=== PATIENT | male | born 1945 | race Caucasian/White ===

== ENCOUNTER → 2018-07-29 08:13 | Outpatient (CLI) | payer MEDICARE, SELFPAY ==
[2018-07-29 08:47] LABS: Add Manual Diff / Slide Review NO; Eosinophils Percent Auto 2.7 % (2-4); Hematocrit 43.3 % (41-53); Hemoglobin 15.2 g/dL (13.5-17.5); Lymphocytes Percent Auto 24.9 % (25-40); Mean Corpuscular Hemoglobin 30.4 PG (26-34); Monocytes Percent Auto 10.6 % (3-14); Neutrophils Absolute Auto 4200 /uL (3000-5900); Neutrophils Percent Auto 60.8 % (50-75); Platelet Count 167 X10^3/uL (150-400); Red Blood Cell Count 4.98 X10^6/uL (4.5-5.9); Red Cell Distribution Width 13.2 % (11.6-14.8)
[2018-07-29 09:52] LABS: Alanine Aminotransferase 28 IU/L (21-72); Albumin 4.1 g/dL (3.5-5.0); Albumin Globulin Ratio 1.6 (1.0-2.8); Alkaline Phosphatase 68 U/L (38-126); Aspartate Aminotransferase 23 IU/L (17-59); BUN Creatinine Ratio 22.5 (6-22); Bilirubin Total 0.5 mg/dL (0.2-1.3); Blood Urea Nitrogen 18 mg/dL (9-20); Calcium 8.8 mg/dL (8.4-10.2); Carbon Dioxide 28 mmol/L (22-32); Chloride 103 mmol/L (98-107); Cholesterol 129 mg/dL (140-199); Estimated Glomerular Filt Rate > 60.0 mL/min (>60); Globulin 2.5 g/dL (1.7-4.1); Glucose 94 mg/dL (80-110); HDL Cholesterol 43 mg/dL (40-60); HEMOLYSIS < 15 (0-50); LDL Cholesterol Calculated 72 mg/dL (<100); Potassium 4.4 mmol/L (3.4-5.1); Sodium 142 mmol/L (137-145); Total Protein 6.6 g/dL (6.3-8.2); Triglycerides 71 mg/dL (35-150)
== END ==
PROVIDERS: Visit Provider Internal Medicine Cardiovascular Disease
DX: I25.10 Atherosclerotic heart disease of native coronary artery without angina pectoris (principal)
CPT/HCPCS: 36415; 80053; 80061; 85025

== ENCOUNTER → 2019-05-13 08:36 | Outpatient (CLI) | payer MEDICARE, SELFPAY ==
--- NOTE | 2019-05-13 08:39 | DI.US.S_ITS ---
PROCEDURE: US ABD AORTA ANEURYSM SCREEN INDICATIONS: ABDOMINAL AORTIC ANEURYSM SCREENING TECHNIQUE: Real time scanning was performed of the aorta and iliac arteries, with image documentation. COMPARISON: None. FINDINGS: Aorta: Proximal aortic diameter measures 3.0 cm. Mid-aorta measures 2.4 cm. Distal aortic diameter is 2.0 cm. Iliac arteries: Right common iliac artery measures 1.7 cm. Left common iliac artery measures 1.5 cm. IMPRESSION: 1. No aneurysmal dilation. Mild scattered plaque. Dictated by: Sirisha Bella M.D. on 05/13/2019 at 13:41 Approved by: Sirisha Bella M.D. on 05/13/2019 at 13:42
== END ==
PROVIDERS: PCP Student in an Organized Health Care Education/Training Program; Visit Provider Student in an Organized Health Care Education/Training Program
DX: Z13.6 Encounter for screening for cardiovascular disorders (principal); Z87.891 Personal history of nicotine dependence
CPT/HCPCS: 76706

== ENCOUNTER 2019-09-05 11:11 | Observation (INO) | payer MEDICARE, SELFPAY ==
[2019-09-05] VITALS (8 sets, daily range): BP systolic 121–150; BP diastolic 74–85; PULSE 58–77; RESP 13–18; TEMP 36.3–36.7; O2SAT 94–100
--- NOTE | 2019-09-05 11:18 | DI.RAD.S_ITS ---
PROCEDURE: XR FINGER LT MIN 2V INDICATIONS: injury TECHNIQUE: 3 views of the 3rd digit acquired. COMPARISON: The FINDINGS: Bones: There is a small chip fracture along the distal ulnar-sided aspect of the 3rd distal phalanx. No dislocations. There is [id number] degeneration of the 3rd distal interphalangeal joint. Soft tissues: There is a soft tissue laceration in the 3rd digit distally with partial soft tissue amputation of the ulnar aspect distally. No radiopaque foreign bodies. IMPRESSION: 1. Soft tissue laceration of the 3rd digit distally with a small chip fracture of the 3rd distal phalanx. Dictated by: Andrés Jaffe M.D. on 09/05/2019 at 10:33 Approved by: Andrés Jaffe M.D. on 09/05/2019 at 10:35
[2019-09-05] MEDS: CEFAZOLIN 2 GM/100 ML FROZ.PIGGY IV (12:37)
--- NOTE | 2019-09-05 13:12 | DI.RAD.S_ITS ---
PROCEDURE: XR CHEST 1V INDICATIONS: pre op TECHNIQUE: One view of the chest was acquired. COMPARISON: [facility], , CHEST 1 VIEW, 08/09/2010, 22:45. FINDINGS: Surgical changes and devices: None. Lungs and pleura: Lungs are clear. No pleural effusions or pneumothorax. Mediastinum: Mediastinal contours appear normal. Heart size is normal. Bones and chest wall: No suspicious bony lesions. Overlying soft tissues appear unremarkable. IMPRESSION: 1. No acute cardiopulmonary disease. Dictated by: Andrés Jaffe M.D. on 09/05/2019 at 12:42 Approved by: Andrés Jaffe M.D. on 09/05/2019 at 12:48
--- NOTE | 2019-09-05 13:21 | ED.UPPEXIN ---
HPI - Extremity Injury (Upper) <JESSICA RamosBC - Last Filed: 09/05/19 15:12> General Chief Complaint: Extremity Injury, Upper Stated Complaint: Left hand middle finger injury Time Seen by Provider: 09/05/19 11:55 Source: patient Mode of arrival: Ambulatory Limitations: no limitations History of Present Illness HPI narrative: The patient is a 74-year-old male former smoker with history of cardiovascular disease who presents with a chief complaint of an injury to the left middle finger. He states he got caught in a running treadmill belt this morning. Does not know when his last tetanus was. States he pulled off the tip of the left middle finger. States he is right-hand dominant. Denies any previous injuries to that area. States last food was crackers and cheese and coffee at 8:30 a.m. this morning. States he is right-hand dominant. Related Data Home Medications Medication Instructions Recorded Confirmed aspirin 81 mg PO QDAY #0 09/07/12 12/24/18 Previous Rx's Medication Instructions Recorded sildenafil (pulm.hypertension) 20 20 mg PO DAILY PRN #30 tab 12/24/18 mg tablet atorvastatin 80 mg tablet 80 mg PO DAILY #90 tab 08/03/19 lisinopril 5 mg tablet 5 mg PO DAILY #90 tab 08/03/19 metoprolol tartrate 50 mg tablet 50 mg PO BID #180 tab 08/03/19 clindamycin HCl 300 mg PO TID #15 cap 09/05/19 oxycodone 5 mg PO Q6H PRN #30 tab 09/05/19 Allergies Allergy/AdvReac Type Severity Reaction Status Date / Time amoxicillin [From AUGMENTIN] Allergy Unknown Verified 09/05/19 11:17 clavulanic acid Allergy Unknown Verified 09/05/19 11:17 [From AUGMENTIN] Review of Systems <KALA Ramos - Last Filed: 09/05/19 15:12> Review of Systems Narrative: GENERAL: Denies chills, fatigue, malaise, fever, sweats. HEENT: Denies sinus pain, ear pain, sore throat, difficulty swallowing, dizziness. RESPIRATORY: Denies dyspnea, cough, wheezing, hemoptysis, sputum. CARDIOVASCULAR: Denies chest pain, palpitations, orthopnea, edema, GASTROINTESTINAL: Denies nausea, vomiting, abdominal pain, diarrhea, constipation, melena. : Denies dysuria, frequency, incontinence, hematuria, urinary retention. MUSCULOSKELETAL: See HPI SKIN: See HPI NEUROLOGIC: Denies weakness, headache, numbness, change in speech, confusion, seizures, incoordination. PSYCHIATRIC: No concerning psychosocial issues. 12 point review of systems is negative except for those stated above Patient History <KAAL Ramos - Last Filed: 09/05/19 15:12> Medical History Jaimes's esophagus (Chronic ~2009) Cardiac arrest (Resolved ~07/2010) Carotid artery disease (Chronic) Colon polyps (Chronic ~2007) Hyperlipidemia (Chronic) Hypertension (Chronic) Kidney stones (Chronic) Measles (Resolved) Mumps (Resolved) Murmur (Chronic) Sigmoid diverticulum (Chronic) Surgical History Anesthesia (Resolved) History of angioplasty (~06/2010) History of colonoscopy (Resolved ~2011) Family History Brother Age: 69 Hypertension High cholesterol Father Age: 98 Heart disease Mother Heart disease Sister Age: 70 High cholesterol Social History Smoking Status: Former smoker Smoking Status: Former smoker Exam <KALA Ramos - Last Filed: 09/05/19 15:12> Narrative Exam Narrative: GENERAL: This is a well-nourished, well-developed patient, in no acute distress HEAD: Atraumatic. Normocephalic. No temporal or scalp tenderness. EYES: Pupils equal round and reactive. Extraocular motions intact. No scleral icterus. No injection or drainage. ENT: Nose without bleeding, purulent drainage or septal hematoma. Throat without erythema, tonsillar hypertrophy or exudate. Uvula midline. Airway patent. NECK: Trachea midline. No JVD or lymphadenopathy. Supple, nontender, no meningeal signs. CARDIOVASCULAR: Regular rate and rhythm RESPIRATORY: No cough. No increased respiratory effort. No accessory muscle use. EXTREMITIES: Range of motion intact noted left middle finger. Able to flex and extend against resistance. See skin exam. BACK: Nontender without deformity or crepitance. No flank tenderness. NEURO: AOx3. SKIN: Injury noted to left middle finger: Soft tissue amputation noted at top of nail, running around tip of left middle finger to senior living down palmar distal phalanx. Through dermis, soft tissue loss, bone visible. Initial Vital Signs Initial Vital Signs: Vital Signs Pulse Rate 77 09/05/19 11:17 Respiratory Rate 16 09/05/19 11:17 Pulse Oximetry 98 09/05/19 11:17 <Jessica Hudson MD - Last Filed: 09/05/19 20:01> Initial Vital Signs Initial Vital Signs: Vital Signs Pulse Rate 77 09/05/19 11:17 Respiratory Rate 16 09/05/19 11:17 Pulse Oximetry 98 09/05/19 11:17 Course <KALA Ramos - Last Filed: 09/05/19 15:12> Orders Ordered: ED Orders 09/05/19 11:18 XR finger LT min 2V Stat 09/05/19 12:10 Complete Blood Count AUTO DIFF Stat Comprehensive Metabolic Panel Stat 09/05/19 13:12 XR chest 1V Stat EKG-12 Lead Stat Discontinued Medications Hydrocodone Bitart/Acetaminophen ([place] 5/325) 1 tab PO NOW PRN PRN Reason: Mild or moderate pain Bupivacaine HCl (Sensorcaine 0.25% (Pf)) 30 ml INJ NOW ONE Stop: 09/05/19 15:03 Last Admin: 09/05/19 15:03 Dose: 30 ml Documented by: LAUREANO Diphtheria/Tetanus/Acell Pertussis (Adacel) 0.5 ml IM .ONCE ONE Stop: 09/05/19 13:24 Last Admin: 09/05/19 13:28 Dose: 0.5 ml Documented by: RSTONJohnnie Fentanyl (Sublimaze) 0 mcg IV Q5MIN PRN PRN Reason: Pain, Mild (1-3) Fentanyl (Sublimaze) 0 mcg IV Q5M PRN PRN Reason: Pain, Severe (7-10) Fentanyl (Sublimaze) 0 mcg IV Q5M PRN PRN Reason: Pain, Moderate (4-6) Cefazolin Sodium/Dextrose (Ancef) 2 gm in 100 mls @ 200 mls/hr IV NOW ONE Stop: 09/05/19 12:46 Last Infusion: 12/08/19 13:13 Dose: 0 mls/hr Documented by: Admin: 09/05/19 12:37 Dose: 200 mls/hr Documented by: HOANG Lactated Ringer's (Lactated Ringers) 1,000 mls @ 42 mls/hr IV CONT JEFFREY Last Infusion: 09/05/19 15:57 Dose: 0 mls/hr Documented by: Admin: 09/05/19 14:30 Dose: 42 mls/hr Documented by: ANJANA Ondansetron HCl (Zofran) 4 mg IV NOW PRN PRN Reason: Nausea And Vomiting Vital Signs Vital signs: Vital Signs - 8 hr 09/05/19 13:37 Temperature 98.0 F Pulse Rate 60 Respiratory Rate 18 Blood Pressure [Right Arm] 150/85 H Pulse Oximetry 100 <Jessica Hudson MD - Last Filed: 09/05/19 20:01> Orders Ordered: ED Orders 09/05/19 11:18 XR finger LT min 2V Stat 09/05/19 12:10 Complete Blood Count AUTO DIFF Stat Comprehensive Metabolic Panel Stat 09/05/19 13:12 XR chest 1V Stat EKG-12 Lead Stat Discontinued Medications Hydrocodone Bitart/Acetaminophen ([place] 5/325) 1 tab PO NOW PRN PRN Reason: Mild or moderate pain Bupivacaine HCl (Sensorcaine 0.25% (Pf)) 30 ml INJ NOW ONE Stop: 09/05/19 15:03 Last Admin: 09/05/19 15:03 Dose: 30 ml Documented by: LAUREANO Diphtheria/Tetanus/Acell Pertussis (Adacel) 0.5 ml IM .ONCE ONE Stop: 09/05/19 13:24 Last Admin: 09/05/19 13:28 Dose: 0.5 ml Documented by: HOANG Fentanyl (Sublimaze) 0 mcg IV Q5MIN PRN PRN Reason: Pain, Mild (1-3) Fentanyl (Sublimaze) 0 mcg IV Q5M PRN PRN Reason: Pain, Severe (7-10) Fentanyl (Sublimaze) 0 mcg IV Q5M PRN PRN Reason: Pain, Moderate (4-6) Cefazolin Sodium/Dextrose (Ancef) 2 gm in 100 mls @ 200 mls/hr IV NOW ONE Stop: 09/05/19 12:46 Last Infusion: 09/05/19 13:13 Dose: 0 mls/hr Documented by: Admin: 09/05/19 12:37 Dose: 200 mls/hr Documented by: HOANG Lactated Ringer's (Lactated Ringers) 1,000 mls @ 42 mls/hr IV CONT JEFFREY Last Infusion: 09/05/19 15:57 Dose: 0 mls/hr Documented by: Admin: 09/05/19 14:30 Dose: 42 mls/hr Documented by: ANJANA Ondansetron HCl (Zofran) 4 mg IV NOW PRN PRN Reason: Nausea And Vomiting Vital Signs Vital signs: Vital Signs - 8 hr 09/05/19 13:37 Temperature 98.0 F Pulse Rate 60 Respiratory Rate 18 Blood Pressure [Right Arm] 150/85 H Pulse Oximetry 100 MDM - Extremity Injury (Upper) <MERLYN Ramos- - Last Filed: 09/05/19 15:12> Lab Data Result diagrams: 09/05/19 12:10 09/05/19 12:10 Labs: Lab Results 09/05/19 09/05/19 Range/Units 12:10 12:10 WBC 7.1 (4.5-11.0) X10^3/uL RBC 5.03 (4.5-5.9) X10^6/uL Hgb 15.4 (13.5-17.5) g/dL Hct 44.5 (41-53) % MCV 88.5 (80-100) fL MCH 30.6 (26-34) PG MCHC 34.6 (30-36) % RDW 13.3 (11.6-14.8) % Plt Count 152 (150-400) X10^3/uL Neut % (Auto) 60.1 (50-75) % Lymph % (Auto) 26.7 (25-40) % Harris % (Auto) 9.2 (3-14) % Eos % (Auto) 3.2 (2-4) % Baso % (Auto) 0.8 (0-2) % Neut # (Auto) 4300 (8384-5737) /uL Lymph # (Auto) 1900 (2418-1671) /uL Harris # (Auto) 700 (0-900) /uL Eos # (Auto) 200 (0-450) /uL Baso # (Auto) 100 (0-100) /uL Sodium 139 (137-145) mmol/L Potassium 4.4 (3.4-5.1) mmol/L Chloride 108 H (98-107) mmol/L Carbon Dioxide 21 L (22-32) mmol/L BUN 16 (9-20) mg/dL Creatinine 0.90 (0.66-1.25) mg/dL Estimated GFR > 60.0 (>60) mL/min BUN/Creatinine Ratio 17.8 (6-22) Glucose 84 (80-110) mg/dL Calcium 9.1 (8.4-10.2) mg/dL Total Bilirubin 0.5 (0.2-1.3) mg/dL AST 46 (17-59) IU/L ALT 55 H (<50) IU/L Alkaline Phosphatase 84 (38-126) U/L Total Protein 6.1 L (6.3-8.2) g/dL Albumin 3.8 (3.5-5.0) g/dL Globulin 2.3 (1.7-4.1) g/dL Albumin/Globulin Ratio 1.7 (1.0-2.8) Imaging Data Chest x-ray: Radiologist's impression: [address] [address] XRay Report Signed Patient: Mike Andre LMR#: [id number] : 6Acct:[id number] Age/Sex: 74 / MDate of Service: 09/05/19 Loc: ED Accession Number: [id number] Procedure: XR chest 1V Ordering Provider: Debi Ramirez PROCEDURE: XR CHEST 1V INDICATIONS: pre op TECHNIQUE: One view of the chest was acquired. COMPARISON: [facility], , CHEST 1 VIEW, 08/09/2010, 22:45. FINDINGS: Surgical changes and devices: None. Lungs and pleura: Lungs are clear. No pleural effusions or pneumothorax. Mediastinum: Mediastinal contours appear normal. Heart size is normal. Bones and chest wall: No suspicious bony lesions. Overlying soft tissues appear unremarkable. IMPRESSION: 1. No acute cardiopulmonary disease. Dictated by: Andrés Jaffe M.D. on 09/05/2019 at 12:42 Approved by: Andrés Jaffe M.D. on 09/05/2019 at 12:48 Finger x-ray: Radiologist's impression: [address] [address] XRay Report Signed Patient: Mike Andre LMR#: [id number] : 6Acct:[id number] Age/Sex: 74 / MDate of Service: 09/05/19 Loc: ED Accession Number: [id number] Procedure: XR finger LT min 2V Ordering Provider: Jessica Hudson MD PROCEDURE: XR FINGER LT MIN 2V INDICATIONS: injury TECHNIQUE: 3 views of the 3rd digit acquired. COMPARISON: The FINDINGS: Bones: There is a small chip fracture along the distal ulnar-sided aspect of the 3rd distal phalanx. No dislocations. There is [id number] degeneration of the 3rd distal interphalangeal joint. Soft tissues: There is a soft tissue laceration in the 3rd digit distally with partial soft tissue amputation of the ulnar aspect distally. No radiopaque foreign bodies. IMPRESSION: 1. Soft tissue laceration of the 3rd digit distally with a small chip fracture of the 3rd distal phalanx. Dictated by: Andrés Jaffe M.D. on 09/05/2019 at 10:33 Approved by: Andrés Jaffe M.D. on 09/05/2019 at 10:35 ECG Data Attestation: I personally reviewed and interpreted this ECG as follows: Interpretation: Sinus bradycardia. Ventricular rate 57. P.r. interval 189. QRS 86. Viewed by Dr. Tristan VARGAS Narrative Medical decision making narrative: The patient is a 74-year-old male presents with a chief complaint of soft tissue injury to his left middle finger. Given the significance of his injury, open fracture use given 2 g Ancef IV. I spoke with Dr. Fernandez from [facility], who viewed his injury and stated that he would rather take the patient to the operating room for cleansing and closure. He was cleansed with Hibiclens the emergency department. His tetanus is updated. The patient repeatedly declined pain medicine or a digit block in the ER. Per ortho recommendations, chest x-ray, EKG and basic lab work were obtained. Discussed with patient. He has no questions or concerns. Was transferred to operating room at 2:16 p.m. <Jessica Hudson MD - Last Filed: 09/05/19 20:01> Lab Data Labs: Lab Results 09/05/19 09/05/19 Range/Units 12:10 12:10 WBC 7.1 (4.5-11.0) X10^3/uL RBC 5.03 (4.5-5.9) X10^6/uL Hgb 15.4 (13.5-17.5) g/dL Hct 44.5 (41-53) % MCV 88.5 (80-100) fL MCH 30.6 (26-34) PG MCHC 34.6 (30-36) % RDW 13.3 (11.6-14.8) % Plt Count 152 (150-400) X10^3/uL Neut % (Auto) 60.1 (50-75) % Lymph % (Auto) 26.7 (25-40) % Harris % (Auto) 9.2 (3-14) % Eos % (Auto) 3.2 (2-4) % Baso % (Auto) 0.8 (0-2) % Neut # (Auto) 4300 (4322-9354) /uL Lymph # (Auto) 1900 (8805-6460) /uL Harris # (Auto) 700 (0-900) /uL Eos # (Auto) 200 (0-450) /uL Baso # (Auto) 100 (0-100) /uL Sodium 139 (137-145) mmol/L Potassium 4.4 (3.4-5.1) mmol/L Chloride 108 H (98-107) mmol/L Carbon Dioxide 21 L (22-32) mmol/L BUN 16 (9-20) mg/dL Creatinine 0.90 (0.66-1.25) mg/dL Estimated GFR > 60.0 (>60) mL/min BUN/Creatinine Ratio 17.8 (6-22) Glucose 84 (80-110) mg/dL Calcium 9.1 (8.4-10.2) mg/dL Total Bilirubin 0.5 (0.2-1.3) mg/dL AST 46 (17-59) IU/L ALT 55 H (<50) IU/L Alkaline Phosphatase 84 (38-126) U/L Total Protein 6.1 L (6.3-8.2) g/dL Albumin 3.8 (3.5-5.0) g/dL Globulin 2.3 (1.7-4.1) g/dL Albumin/Globulin Ratio 1.7 (1.0-2.8) Discharge Plan Departure Patient Disposition: Admitted as Observation Clinical Impression: Fingertip amputation Discharge Date/Time: 09/05/19 14:15 Instructions: DI for Incision and Drainage Referrals: Jesus Yarbrough MD [Primary Care Provider] - Admit Date/Time: 09/05/19 14:11 Admit Provider: Tay Fernandez
[2019-09-05 13:24] LABS: Add Manual Diff / Slide Review NO; Basophils Absolute Auto 100 /uL (0-100); Basophils Percent Auto 0.8 % (0-2); Eosinophils Absolute Auto 200 /uL (0-450); Eosinophils Percent Auto 3.2 % (2-4); Hematocrit 44.5 % (41-53); Hemoglobin 15.4 g/dL (13.5-17.5); Lymphocytes Absolute Auto 1900 /uL (1100-4500); Lymphocytes Percent Auto 26.7 % (25-40); Mean Corpuscular HGB Conc 34.6 % (30-36); Mean Corpuscular Hemoglobin 30.6 PG (26-34); Mean Corpuscular Volume 88.5 fL (80-100); Monocytes Absolute Auto 700 /uL (0-900); Monocytes Percent Auto 9.2 % (3-14); Neutrophils Absolute Auto 4300 /uL (1500-7000); Neutrophils Percent Auto 60.1 % (50-75); Platelet Count 152 X10^3/uL (150-400); Red Blood Cell Count 5.03 X10^6/uL (4.5-5.9); Red Cell Distribution Width 13.3 % (11.6-14.8); White Blood Cell Count 7.1 X10^3/uL (4.5-11.0)
[2019-09-05] MEDS: TET,DIPH,PERTUSS(ACELL),VAC/PF 0.5 ML SYRINGE IM (13:28)
[2019-09-05 13:37] LABS: Alanine Aminotransferase 55 IU/L (<50); Albumin 3.8 g/dL (3.5-5.0); Albumin Globulin Ratio 1.7 (1.0-2.8); Alkaline Phosphatase 84 U/L (38-126); Aspartate Aminotransferase 46 IU/L (17-59); BUN Creatinine Ratio 17.8 (6-22); Bilirubin Total 0.5 mg/dL (0.2-1.3); Blood Urea Nitrogen 16 mg/dL (9-20); Calcium 9.1 mg/dL (8.4-10.2); Carbon Dioxide 21 mmol/L (22-32); Chloride 108 mmol/L (98-107); Estimated Glomerular Filt Rate > 60.0 mL/min (>60); Globulin 2.3 g/dL (1.7-4.1); Glucose 84 mg/dL (80-110); HEMOLYSIS 30 (0-50); Potassium 4.4 mmol/L (3.4-5.1); Sodium 139 mmol/L (137-145); Total Protein 6.1 g/dL (6.3-8.2)
--- NOTE | 2019-09-05 13:39 | PC.NURSE ---
last ate 3 crackers, with cheese and water between 8-8:30 am today
[2019-09-05] MEDS: LACTATED RINGERS 1,000 ML 42 ML IV (14:30)
[2019-09-05] MEDS: BUPIVACAINE 0.25% (PF) VIAL 30 ML INJ (15:03)
--- NOTE | 2019-09-05 15:33 | PM.OP.1 ---
Operative Date/Time/Diagnoses Date of procedure: 09/05/19 Time of procedure: 13:33 Pre-op diagnosis: 1. Left middle finger partial amputation with exposed bone 2. Open fx of left middle finger distal phalanx Post-op diagnosis: same Procedure & Clinicians Procedure: 1. Left finger Irrigation and debridement of skin, muscle and bone 2. Primary closure and completion of finger tip amputation Same procedure as scheduled: Yes Indications: Mr. Andre is a 74 yo M with traumatic finger tip amputation today while operating a treadmill. He was seen in the ED. Orthopedics service was consulted. After discussing risks and benefits of treatment options, patient was consented for I&D and completion of amputation of left middle finger. Surgeon: Tay Fernandez Click Yes if Unassisted: Yes Anesthesia Type: General Operative Notes Closure Type: primary Specimen(s): none sent Estimated Blood Loss (mL): 1 Blood products transfused: none Tourniquet time (min): 15 Procedure in detail: After patient was consented of risks and benefits of surgery treatment, operative consent obtained and placed in chart. Patient was taken to the operative room placed in the supine position. Patient's left arm was placed onto the arm table. A tourniquet was placed on patient's left upper arm. Patient's left arm was then prepped and draped in sterile fashion. Time-out was then performed at this time. Tourniquet was inflated to 250 mm Hg. Digital block was performed using 0.25% plain Marcaine to the left middle finger. Patient's wound was explored, which shows left middle finger amputation through the middle of the nail matrix along with maturity the nail bed with exposed bone. Underneath the fingernail there was not much soft tissue coverage over the bony portion of the distal phalanx. The soft tissue was debrided using knife and scissors until healthy tissue was exposed. The the bony tissue was debrided using a Leksell rongeur until enough bone was trimmed back to be recovered by the soft tissue remaining. The skin edges were approximated using sutures in interrupted fashion. 3-0 nylon suture was placed from medial to lateral fashion crossing the skin edges by flipping the palmar side of the skin towards the dorsal portion of the skin edge. At the end the procedure, the skin edges were closed agitate edge with minimal amount of dermis tissue exposed. There was no any bony tissue exposed at the end of the closure. A sterile dressing was applied along with a aluminum finger splint to protect his soft tissue. Tourniquet was deflated at this time there was no bleeding visible. Perfusion of the finger tip was assessed at the end of the procedure the finger tip was pink and well perfused. I discussed with the patient and his family that his finger nail matrix may continue to produce a fingernail material which might need additional treatment/procedure in the future. Current emergent soft tissue coverage of his exposed bone was performed today in order to prevent osteomyelitis and infection to his finger. We will reassess his wound in 4-5 days. And his sutures should be retained for 2 weeks prior to removal. Complications: none Post-operative Condition: stable Disposition: same day surgery Plan for aftercare: Discharge to home
--- NOTE | 2019-09-05 15:39 | SUR.PHASEI ---
1530 awake on arrival to pacu, talking, denies pain and nausea. Fluids given [id number] to bedside. Pt talking with her.
--- NOTE | 2019-09-05 15:50 | SUR.PHASEII ---
Small amount of drainage coming through on L 3rd finger dressing. Reinforces with sterile gauze.
--- NOTE | 2019-09-05 15:58 | SUR.PHASEII ---
correction - pt denies pain
--- NOTE | 2019-09-05 16:05 | SUR.PHASEII ---
1605 to home - stable on feet, pleasant, denies pain/nausea. Denies questions/concerns (pt and ).
== END 2019-09-05 16:05 | disposition home or self-care (01) ==
LOC: ED 11:55 → AC 14:12
PROVIDERS: Admitting Provider Orthopaedic Surgery Orthopaedic Surgery of the Spine; Emergency Provider Nurse Practitioner Family; PCP Student in an Organized Health Care Education/Training Program; Visit Provider Orthopaedic Surgery Orthopaedic Surgery of the Spine
PROC: (CPT 26236; principal; 2019-09-05 14:30)
DX: S68.123A Partial traumatic metacarpophalangeal amputation of left middle finger, initial encounter (principal); W31.89XA Contact with other specified machinery, initial encounter; Y93.A1 Activity, exercise machines primarily for cardiorespiratory conditioning; Z86.74 Personal history of sudden cardiac arrest; E78.5 Hyperlipidemia, unspecified; I10 Essential (primary) hypertension
CPT/HCPCS: 26236; 36415; 71045; 73140; 80053; 85025; 90471; 93005; 93010; 96365; 99283; 99285; G0378; 90715; J0690; J2250; J2704; J3010

== ENCOUNTER 2020-11-20 12:07 | Emergency (ER) | payer MEDICARE, SELFPAY ==
[2020-11-20] VITALS (35 sets, daily range): BP systolic 91–153; BP diastolic 56–94; PULSE 57–87; RESP 10–31; O2SAT 92–99
--- NOTE | 2020-11-20 12:13 | DI.RAD.S_ITS ---
PROCEDURE: XR CHEST 1V INDICATIONS: chest pain TECHNIQUE: One view of the chest was acquired. COMPARISON: [facility], , XR CHEST 1V, 09/05/2019, 13:27. [facility], , CHEST 1 VIEW, 08/09/2010, 22:45. FINDINGS: Surgical changes and devices: None. Lungs and pleura: Lungs are clear, considering reduced inspiratory volume. No pleural effusions or pneumothorax. Mediastinum: Mediastinal contours appear normal. Heart size is normal. Bones and chest wall: No suspicious bony lesions. Overlying soft tissues appear unremarkable. IMPRESSION: Prominently reduced inspiratory volume, which crowds the bronchovascular markings and accentuates the cardiac silhouette. If deep inspiratory volume was obtained the appearance of the chest likely would be normal. Dictated by: Josef Schmitz M.D. on 11/20/2020 at 12:52 Approved by: Josef Schmitz M.D. on 11/20/2020 at 12:53
[2020-11-20 12:32] LABS: Add Manual Diff / Slide Review NO; Basophils Absolute Auto 100 /uL (0-100); Basophils Percent Auto 1.3 % (0-2); Eosinophils Absolute Auto 200 /uL (0-450); Eosinophils Percent Auto 2.1 % (2-4); Hematocrit 46.5 % (41-53); Hemoglobin 16.1 g/dL (13.5-17.5); Lymphocytes Absolute Auto 2100 /uL (1100-4500); Lymphocytes Percent Auto 24.3 % (25-40); Mean Corpuscular HGB Conc 34.7 % (30-36); Mean Corpuscular Hemoglobin 30.4 PG (26-34); Mean Corpuscular Volume 87.6 fL (80-100); Monocytes Absolute Auto 800 /uL (0-900); Monocytes Percent Auto 9.5 % (3-14); Neutrophils Absolute Auto 5400 /uL (1500-7000); Neutrophils Percent Auto 62.8 % (50-75); Platelet Count 160 X10^3/uL (150-400); Red Blood Cell Count 5.31 X10^6/uL (4.5-5.9); Red Cell Distribution Width 13.5 % (11.6-14.8); White Blood Cell Count 8.5 X10^3/uL (4.5-11.0)
[2020-11-20 12:36] LABS: Prothrombin Time 11.8 SECONDS (10.1-12.7)
[2020-11-20 12:38] LABS: PTT Partial Thromboplastin Tim 29 SECONDS (26.4-36.2)
[2020-11-20 12:40] LABS: Alanine Aminotransferase 32 IU/L (<50); Albumin 4.3 g/dL (3.5-5.0); Albumin Globulin Ratio 1.5 (1.0-2.8); Alkaline Phosphatase 81 U/L (38-126); Aspartate Aminotransferase 44 IU/L (17-59); BUN Creatinine Ratio 26.1 (6-22); Bilirubin Total 0.9 mg/dL (0.2-1.3); Blood Urea Nitrogen 24 mg/dL (9-20); Calcium 9.2 mg/dL (8.4-10.2); Carbon Dioxide 27 mmol/L (22-32); Chloride 103 mmol/L (98-107); Creatine Kinase 74 U/L (55-170); Estimated Glomerular Filt Rate > 60.0 mL/min (>60); Globulin 2.9 g/dL (1.7-4.1); Glucose 99 mg/dL (80-110); HEMOLYSIS 107 (0-50); Lipase 99 U/L (23-300); Potassium 5.2 mmol/L (3.4-5.1); Sodium 136 mmol/L (137-145); Total Protein 7.2 g/dL (6.3-8.2)
[2020-11-20] MEDS: ASPIRIN 81 MG CHEW TAB 324 MG PO (12:41)
[2020-11-20] MEDS: NITROGLYCERIN 0.4 MG SL TAB SL ×2 (12:43→13:03)
--- NOTE | 2020-11-20 12:48 | ED.CHESTPAIN ---
HPI - Chest Pain General Chief Complaint: Chest Pain Stated Complaint: Heart,Tightness,Pain In Left Arm, Hx Heart Attack Time Seen by Provider: 11/20/20 12:24 Mode of arrival: Ambulatory History of Present Illness HPI narrative: 75-year-old gentleman with a history of prior coronary artery disease with VFib arrest and 1 stent, hyperlipidemia hypertension who presents with 5 days of intermittent chest tightness, increasing nonspecific indigestion symptoms, no dyspnea and no diaphoresis. He notes that he had more severe tightness over his chest when he woke up this morning at seem to improve and then he was mopping the floor around 9:00 a.m. when it became significantly more tight with a sensation into his left biceps as well. He does note that he has had these symptoms intermittently for the last 6 days however he also had his 2nd COVID shot 8 days ago and changed his workout routine and was doing some different weightlifting in attributed the you tightness and left arm pain to that. His then notes that he has had more complaints of reflux to which he reluctantly agrees. They described no fevers, cough, vomiting, diarrhea, abdominal pain, change to stools otherwise, no headache, no acute neurologic changes Related Data Home Medications Medication Instructions Recorded Confirmed aspirin 81 mg PO QDAY #0 09/07/12 02/25/20 Previous Rx's Medication Instructions Recorded atorvastatin 80 mg tablet 80 mg PO DAILY #90 tab 02/25/20 lisinopril 5 mg tablet 5 mg PO DAILY #90 tab 02/25/20 metoprolol tartrate 50 mg tablet 50 mg PO BID #180 tab 02/25/20 Allergies Allergy/AdvReac Type Severity Reaction Status Date / Time amoxicillin [From AUGMENTIN] Allergy Unknown Verified 11/20/20 12:15 clavulanic acid Allergy Unknown Verified 11/20/20 12:15 [From AUGMENTIN] Review of Systems Review of Systems ROS Unobtainable: All systems reviewed & are unremarkable except as noted in HPI and below Patient History Medical History (Updated 11/20/20 @ 16:36 by Cristin Triplett MD) Jaimes's esophagus (~2009) Cardiac arrest (~07/2010) Carotid artery disease Colon polyps (~2007) Hyperlipidemia Hypertension Kidney stones Measles Mumps Murmur Sigmoid diverticulum Surgical History Anesthesia History of angioplasty (~06/2010) History of colonoscopy (~2011) Family History Brother Age: 70 Hypertension High cholesterol Father Age: 99 Heart disease Mother Heart disease Sister Age: 71 High cholesterol Social History Smoking Status: Former smoker Smoking Status: Former smoker Substance Use Type: does not use Exam Narrative Exam Narrative: General: Healthy appearing, in no acute distress. Able to give a complete and coherent history. Well-nourished well-developed HEENT: Moist mucous membranes, normal sclera with reactive pupils, Neck: No JVD, supple Respiratory: Lungs are clear to auscultation, no wheezing no rales no rhonchi. Full and symmetrical air movement Chest: No rashes, no tenderness to palpation along the ribs were sternal border no contusions or trauma Cardiac: Regular rate and rhythm no murmurs no bruits Abdomen: Soft, nontender, good bowel tones, no flank pain Skin: Warm and dry, no rashes Neurologic: Grossly neurologically intact with no obvious asymmetries or abnormalities Extremities: No trauma, well perfused Psych: Cooperative, appropriate insight and affect Initial Vital Signs Initial Vital Signs: Vital Signs Pulse Rate 59 L 11/20/20 12:34 Respiratory Rate 15 11/20/20 12:34 Pulse Oximetry 98 11/20/20 12:34 Course Orders Ordered: ED Orders 11/20/20 12:12 EKG-12 Lead Stat 11/20/20 12:13 XR chest 1V Stat 11/20/20 12:20 Complete Blood Count AUTO DIFF Stat Comprehensive Metabolic Panel Stat Lipase Stat Magnesium Stat Partial Thromboplastin Time Stat Prothrombin Time INR Stat Troponin & CK Cardiac Panel Stat 11/20/20 12:45 COVID19 Stat 11/20/20 14:34 Troponin I Stat 11/20/20 15:58 EKG-12 Lead Stat Heparin Sodium/Dextrose (Heparin Drip) 25,000 unit in 500 mls @ 17.418 mls/hr IV CONT JEFFREY; Protocol Last Admin: 11/20/20 17:24 Dose: 12 units/kg/hr, 17.418 mls/hr Documented by: SOHEILA Nitroglycerin (Nitroglycerin 0.4 Mg Sl Tab) 0.4 mg SL [id number] PRN PRN Reason: Chest Pain Last Admin: 11/20/20 13:03 Dose: 0.4 mg Documented by: Admin: 11/20/20 12:43 Dose: 0.4 mg Documented by: SOHEILA Discontinued Medications Aspirin (Aspirin 81 Mg Chew Tab) 324 mg PO NOW ONE Stop: 11/20/20 12:30 Last Admin: 11/20/20 12:41 Dose: 324 mg Documented by: SOHEILA Heparin Sodium (Porcine) (Heparin 5,000 Unit/Ml Vial) 5,800 unit 80 unit/kg (5800 unit) IV NOW ONE Stop: 11/20/20 16:36 Last Admin: 11/20/20 17:23 Dose: 5,800 unit Documented by: SOHEILA Vital Signs Vital signs: Vital Signs - 8 hr 11/20/20 12:34 11/20/20 12:43 11/20/20 12:45 Pulse Rate 59 L 64 Respiratory Rate 15 16 Blood Pressure 130/76 127/81 Pulse Oximetry 98 97 11/20/20 12:59 11/20/20 13:00 11/20/20 13:03 Pulse Rate 61 60 Respiratory Rate 19 16 Blood Pressure 108/67 108/67 Pulse Oximetry 96 96 11/20/20 13:15 11/20/20 13:30 11/20/20 13:45 Pulse Rate 66 62 61 Respiratory Rate 19 18 17 Blood Pressure 99/56 L 98/58 L 101/64 Pulse Oximetry 95 96 97 11/20/20 14:00 11/20/20 14:15 11/20/20 14:30 Pulse Rate 58 L 58 L 57 L Respiratory Rate 16 23 11 L Blood Pressure 99/61 91/63 108/58 L Pulse Oximetry 97 96 97 11/20/20 14:45 11/20/20 15:00 11/20/20 15:01 Pulse Rate 57 L 58 L 58 L Respiratory Rate 19 16 16 Blood Pressure 109/59 L 101/65 Pulse Oximetry 98 97 98 11/20/20 15:15 11/20/20 15:30 11/20/20 15:45 Pulse Rate 61 60 61 Respiratory Rate 25 H 21 17 Blood Pressure 106/65 106/66 100/65 Pulse Oximetry 97 98 98 11/20/20 16:00 11/20/20 16:15 11/20/20 16:16 Pulse Rate 62 64 65 Respiratory Rate 22 18 19 Blood Pressure 103/65 127/81 Pulse Oximetry 97 95 98 11/20/20 16:30 11/20/20 16:31 11/20/20 16:45 Pulse Rate 68 69 68 Respiratory Rate 24 31 H 18 Blood Pressure 131/94 H 125/73 Pulse Oximetry 95 92 98 11/20/20 17:00 11/20/20 17:15 11/20/20 17:30 Pulse Rate 71 77 73 Respiratory Rate 16 25 H 18 Blood Pressure 122/70 117/63 Pulse Oximetry 98 99 99 11/20/20 17:45 Pulse Rate 74 Respiratory Rate 15 Blood Pressure 118/71 Pulse Oximetry 98 MDM - Chest Pain Medical Records Data Attestation: I reviewed the patient's medical records. Lab Data Attestation: I reviewed the patient's lab results. Result diagrams: 11/20/20 12:20 11/20/20 12:20 Labs: Lab Results 11/20/20 11/20/20 11/20/20 Range/Units 12:20 12:20 12:20 WBC 8.5 (4.5-11.0) X10^3/uL RBC 5.31 (4.5-5.9) X10^6/uL Hgb 16.1 (13.5-17.5) g/dL Hct 46.5 (41-53) % MCV 87.6 (80-100) fL MCH 30.4 (26-34) PG MCHC 34.7 (30-36) % RDW 13.5 (11.6-14.8) % Plt Count 160 (150-400) X10^3/uL Neut % (Auto) 62.8 (50-75) % Lymph % (Auto) 24.3 L (25-40) % [place] % (Auto) 9.5 (3-14) % Eos % (Auto) 2.1 (2-4) % Baso % (Auto) 1.3 (0-2) % Neut # (Auto) 5400 (1427-4453) /uL Lymph # (Auto) 2100 (3287-6623) /uL [place] # (Auto) 800 (0-900) /uL Eos # (Auto) 200 (0-450) /uL Baso # (Auto) 100 (0-100) /uL PT 11.8 (10.1-12.7) SECONDS INR 1.0 (0.9-1.3) APTT 29 (26.4-36.2) SECONDS Sodium 136 L (137-145) mmol/L Potassium 5.2 H (3.4-5.1) mmol/L Chloride 103 (98-107) mmol/L Carbon Dioxide 27 (22-32) mmol/L BUN 24 H (9-20) mg/dL Creatinine 0.92 (0.66-1.25) mg/dL Estimated GFR > 60.0 (>60) mL/min BUN/Creatinine Ratio 26.1 H (6-22) Glucose 99 (80-110) mg/dL Calcium 9.2 (8.4-10.2) mg/dL Magnesium 2.0 (1.6-2.3) mg/dL Total Bilirubin 0.9 (0.2-1.3) mg/dL AST 44 (17-59) IU/L ALT 32 (<50) IU/L Alkaline Phosphatase 81 (38-126) U/L Total Creatine Kinase 74 (55-170) U/L CK-MB (CK-2) TNP CK-MB (CK-2) Rel Index TNP Troponin I < 0.012 (0.01-0.034) ng/mL Total Protein 7.2 (6.3-8.2) g/dL Albumin 4.3 (3.5-5.0) g/dL Globulin 2.9 (1.7-4.1) g/dL Albumin/Globulin Ratio 1.5 (1.0-2.8) Lipase 99 (23-300) U/L SARS-CoV-2 (PCR) (Negative) 11/20/20 11/20/20 Range/Units 12:45 14:34 WBC (4.5-11.0) X10^3/uL RBC (4.5-5.9) X10^6/uL Hgb (13.5-17.5) g/dL Hct (41-53) % MCV (80-100) fL MCH (26-34) PG MCHC (30-36) % RDW (11.6-14.8) % Plt Count (150-400) X10^3/uL Neut % (Auto) (50-75) % Lymph % (Auto) (25-40) % [place] % (Auto) (3-14) % Eos % (Auto) (2-4) % Baso % (Auto) (0-2) % Neut # (Auto) (8004-9158) /uL Lymph # (Auto) (5667-5332) /uL [place] # (Auto) (0-900) /uL Eos # (Auto) (0-450) /uL Baso # (Auto) (0-100) /uL PT (10.1-12.7) SECONDS INR (0.9-1.3) APTT (26.4-36.2) SECONDS Sodium (137-145) mmol/L Potassium (3.4-5.1) mmol/L Chloride (98-107) mmol/L Carbon Dioxide (22-32) mmol/L BUN (9-20) mg/dL Creatinine (0.66-1.25) mg/dL Estimated GFR (>60) mL/min BUN/Creatinine Ratio (6-22) Glucose (80-110) mg/dL Calcium (8.4-10.2) mg/dL Magnesium (1.6-2.3) mg/dL Total Bilirubin (0.2-1.3) mg/dL AST (17-59) IU/L ALT (<50) IU/L Alkaline Phosphatase (38-126) U/L Total Creatine Kinase (55-170) U/L CK-MB (CK-2) CK-MB (CK-2) Rel Index Troponin I < 0.012 (0.01-0.034) ng/mL Total Protein (6.3-8.2) g/dL Albumin (3.5-5.0) g/dL Globulin (1.7-4.1) g/dL Albumin/Globulin Ratio (1.0-2.8) Lipase (23-300) U/L SARS-CoV-2 (PCR) Negative (Negative) [facility] Narrative Medical decision making narrative: 75-year-old gentleman presents with 5 days of increasing unstable angina with chest pressure tightness occurring even at rest. It does resolved intermittently. Worse this morning after doing some light mopping and somewhat better after a single nitro. Initial 2 troponins and EKGs are unremarkable however patient does describe the severity of the pain this morning as exactly what it felt like prior to his [place] with stent and preceding VFib arrest. Patient is reluctant to stay in the hospital however after discussion with Drs. High and James, he is willing to be transferred to [facility] with a heparin drip currently not complaining of any chest tightness and may need a heart catheterization sooner rather than later. Will certainly benefit from hospitalist admission and Cardiology consultation. Care is reviewed with hospitalist, Dr. Ma. Patient will be transferred to [facility] for acute coronary syndrome. Discharge Plan Departure [facility] Clinical Impression: Unstable angina pectoris Prescriptions: No Action aspirin 81 MG tablet,delayed release (DR/EC) 81 mg PO QDAY Qty: 0 RF: 0 lisinopril 5 mg tablet 5 mg PO DAILY Qty: 90 RF: 3 metoprolol tartrate [Lopressor] 50 mg tablet 50 mg PO BID Qty: 180 RF: 3 atorvastatin [Lipitor] 80 mg tablet 80 mg PO DAILY Qty: 90 RF: 3 Referrals: Jesus Yarbrough MD [Primary Care Provider] -
[2020-11-20 12:52] LABS: Troponin I < 0.012 ng/mL (0.01-0.034)
[2020-11-20 13:10] LABS: COVID19 -Nasal RAPID Negative (Negative)
[2020-11-20 15:07] LABS: Troponin I < 0.012 ng/mL (0.01-0.034)
[2020-11-20] MEDS: HEPARIN 5,000 UNIT/ML VIAL 5800 UNIT IV (17:23)
[2020-11-20] MEDS: HEPARIN DRIP 25,000 UNIT/500 ML IV.SOLN 17.418 UNIT IV (17:24)
--- NOTE | 2020-12-21 20:14 | PC.NURSE ---
Late entry: Heparin infusing at 1741 completed for purposes of [facility] documentation at 11/20 @ 1921. Continued via [facility] during transport.
== END 2020-11-20 19:25 | disposition short-term general hospital (02) ==
PROVIDERS: Emergency Provider Emergency Medicine; PCP Student in an Organized Health Care Education/Training Program
DX: I25.110 Atherosclerotic heart disease of native coronary artery with unstable angina pectoris (principal); Z95.5 Presence of coronary angioplasty implant and graft; I10 Essential (primary) hypertension; Z20.822 Contact with and (suspected) exposure to COVID-19
CPT/HCPCS: 36415; 71045; 80053; 82550; 83690; 83735; 84484; 85025; 85610; 85730; 87635; 93005; 96365; 96366; 96375; 99284; 99285; C9803; J1644

== ENCOUNTER → 2022-01-28 10:43 | Outpatient (CLI) | payer MEDICARE, SELFPAY ==
[2022-01-28 13:52] LABS: BUN Creatinine Ratio 23.7 (6-22); Blood Urea Nitrogen 22 mg/dL (9-20); Calcium 8.8 mg/dL (8.4-10.2); Carbon Dioxide 27 mmol/L (22-32); Chloride 102 mmol/L (98-107); Estimated Glomerular Filt Rate > 60 mL/min (>60); Glucose 89 mg/dL (80-110); HEMOLYSIS < 15 (0-50); Potassium 4.3 mmol/L (3.4-5.1); Sodium 136 mmol/L (137-145)
== END ==
PROVIDERS: PCP Student in an Organized Health Care Education/Training Program; Referring Provider Student in an Organized Health Care Education/Training Program; Visit Provider Student in an Organized Health Care Education/Training Program
DX: I10 Essential (primary) hypertension (principal)
CPT/HCPCS: 36415; 80048

== ENCOUNTER → 2023-02-03 14:25 | Outpatient (CLI) | payer MEDICARE, SELFPAY ==
[2023-02-03 15:44] LABS: BUN Creatinine Ratio 16.8 (6-22); Blood Urea Nitrogen 20 mg/dL (9-20); Calcium 8.2 mg/dL (8.4-10.2); Carbon Dioxide 26 mmol/L (22-32); Chloride 106 mmol/L (98-107); Cholesterol 150 mg/dL (140-199); Estimated Glomerular Filt Rate > 60 mL/min (>60); Glucose 101 mg/dL (80-110); HDL Cholesterol 50 mg/dL (40-60); HEMOLYSIS < 15 (0-50); LDL Cholesterol Calculated 77 mg/dL (<100); Sodium 138 mmol/L (137-145); Triglycerides 117 mg/dL (35-150)
[2023-02-04 19:45] LABS: Hep C Virus Ab w/Reflex Quant NEGATIVE s/c (NEGATIVE)
== END ==
PROVIDERS: PCP Student in an Organized Health Care Education/Training Program; Referring Provider Student in an Organized Health Care Education/Training Program; Visit Provider Student in an Organized Health Care Education/Training Program
DX: I10 Essential (primary) hypertension (principal); E78.5 Hyperlipidemia, unspecified; I25.10 Atherosclerotic heart disease of native coronary artery without angina pectoris; Z11.59 Encounter for screening for other viral diseases
CPT/HCPCS: 36415; 80048; 80061; 86803